=== PATIENT | male | born 1955 | race Caucasian/White ===

== ENCOUNTER 2018-05-16 08:30 | Inpatient (IN) | payer OTHER ==
[~2018-05-16] VITALS: Ht 182.9 cm; Wt 80.0 kg
[2018-05-16] MEDS ORDERED: LIPI10 PO (09:03)
[2018-05-16] MEDS ORDERED: SEROQUEL50 M1 PO (09:03)
[2018-05-16] MEDS ORDERED: OMEPRAZOLE40 M1 PO (09:03)
[2018-05-16] MEDS ORDERED: DOK COLACE100 MG PO (09:03)
[2018-05-16] MEDS ORDERED: BACITRACIN-NEO-1 OIN (09:03)
[2018-05-16] MEDS ORDERED: ROBAFEN100 MG/5 M (09:04)
[2018-05-16] MEDS ORDERED: BENZTROPINE MESY2 MG PO (09:04)
[2018-05-16] MEDS ORDERED: BENADRYL ALLERG25 M1 PO (09:04)
[2018-05-16] MEDS ORDERED: EFFEXOR-XR150 MG PO (09:04)
[2018-05-16] MEDS ORDERED: IBU600 M2 PO (09:05)
[2018-05-16 10:21] LABS: BASOPHIL % 0.6 % (0-2); PLATELET COUNT 377 x10^3mcL (130-400); RED CELL DISTRIBUTION WIDTH 14.4 % (11.5-14.5)
[2018-05-16 10:24] LABS: CALCIUM 9.3 mg/dL (8.5-10.1); CARBON DIOXIDE 29.3 mmol/L (21-32); CHLORIDE SERUM 101 mmol/L (98-107); CREATININE SERUM 0.9 mg/dL (0.7-1.3); GFR1 > 60 mL/min; GLUCOSE SERUM 86 mg/dL (74-106); POTASSIUM SERUM 4.2 mmol/L (3.5-5.1); SODIUM SERUM 137 mmol/L (136-145)
[2018-05-16 10:37] LABS: ALBUMIN 3.5 g/dL (3.4-5.0); ALKALINE PHOSPHATASE 89 U/L (46-116); ALT/SGPT 11 U/L (16-63); AST/SGOT 18 U/L (15-37); BILIRUBIN TOTAL 0.27 mg/dL (0.20-1.00); TOTAL PROTEIN, SERUM 7.9 g/dL (6.4-8.2)
[2018-05-16 10:40] LABS: microscopic required? NO
[2018-05-16 11:05] LABS: UA SPECIFIC GRAVITY <=1.005 (1.005-1.035); urine erythrocyte NEGATIVE (NEGATIVE)
[2018-05-16 12:11] LABS: CHOLESTEROL/HDL RATIO 3.9; PHOSPHOROUS 3.3 mg/dL (2.5-4.9)
[2018-05-16 18:05] VITALS: BP 105/59
[2018-05-16 21:19] VITALS: BP 96/52
[2018-05-16 21:48] VITALS: BP 101/64
[2018-05-17 05:18] VITALS: BP 118/79
[2018-05-17 06:56] LABS: BASOPHIL % 0.2 % (0-2); PLATELET COUNT 357 x10^3mcL (130-400); RED CELL DISTRIBUTION WIDTH 14.3 % (11.5-14.5)
[2018-05-17 07:05] LABS: CALCIUM 9.3 mg/dL (8.5-10.1); CARBON DIOXIDE 26.4 mmol/L (21-32); CHLORIDE SERUM 104 mmol/L (98-107); CREATININE SERUM 0.8 mg/dL (0.7-1.3); GFR1 > 60 mL/min; GLUCOSE SERUM 92 mg/dL (74-106); PHOSPHOROUS 3.2 mg/dL (2.5-4.9); POTASSIUM SERUM 4.4 mmol/L (3.5-5.1); SODIUM SERUM 139 mmol/L (136-145)
[2018-05-17 09:46] VITALS: BP 117/77
[2018-05-17 16:27] VITALS: BP 142/85
[2018-05-17 20:48] VITALS: BP 111/66
[2018-05-18 05:35] VITALS: BP 120/76
[2018-05-18 06:32] LABS: CALCIUM 9.6 mg/dL (8.5-10.1); CARBON DIOXIDE 26.8 mmol/L (21-32); CHLORIDE SERUM 104 mmol/L (98-107); GFR1 > 60 mL/min; GLUCOSE SERUM 110 mg/dL (74-106); MAGNESIUM 2.1 mg/dL (1.8-2.4); PHOSPHOROUS 4.1 mg/dL (2.5-4.9); POTASSIUM SERUM 4.3 mmol/L (3.5-5.1); SODIUM SERUM 139 mmol/L (136-145)
[2018-05-18 06:40] LABS: BASOPHIL % 0.1 % (0-2); PLATELET COUNT 399 x10^3mcL (130-400); RED CELL DISTRIBUTION WIDTH 13.3 % (11.5-14.5)
[2018-05-18 08:15] VITALS: BP 110/72
[2018-05-18] MEDS ORDERED: LEVAQUIN750 MG PO (11:47)
[2018-05-18] MEDS ORDERED: PREDNISONE20 MG PO (11:58)
[2018-05-18 12:02] VITALS: BP 110/72
[2018-05-18] MEDS ORDERED: BACO TOP (15:41)
[2018-05-18] MEDS ORDERED: APLICARE ANTIS118 M3 TOP (15:41)
[2018-05-19 09:04] VITALS: Ht 182.9 cm; Wt 80.0 kg
== END 2018-05-18 18:02 | DRG 193 ==
LOC: ED 08:30 → MU 11:31
PROVIDERS: Emergency Medicine; ADMIT Internal Medicine
DX: J15.9 Unspecified bacterial pneumonia (principal); J96.01 Acute respiratory failure with hypoxia; J44.1 Chronic obstructive pulmonary disease with (acute) exacerbation; E11.65 Type 2 diabetes mellitus with hyperglycemia; F70 Mild intellectual disabilities; E78.5 Hyperlipidemia, unspecified; K21.9 Gastro-esophageal reflux disease without esophagitis; Z72.0 Tobacco use; Z68.23 Body mass index [BMI] 23.0-23.9, adult
CPT/HCPCS: 36600; 82962; 83880; 87804; 99406; J1644; J1956; J2543; J2920; J2930; J7030; J7040; J7613; J7644; Q0092; Q0163

== ENCOUNTER 2018-05-27 10:51 | Inpatient (IN) | payer OTHER ==
[~2018-05-27] VITALS: Ht 182.9 cm; Wt 74.2 kg
[~2018-05-27 10:51] MED LIST: APLICARE ANTIS118 M3 TOP; BACITRACIN-NEO-1 OIN; BACO TOP; BENADRYL ALLERG25 M1 PO; BENZTROPINE MESY2 MG PO; DOK COLACE100 MG PO; EFFEXOR-XR150 MG PO; IBU600 M2 PO; LEVAQUIN750 MG PO; LIPI10 PO; OMEPRAZOLE40 M1 PO; PREDNISONE20 MG PO; ROBAFEN100 MG/5 M; SEROQUEL50 M1 PO
[2018-05-27 11:44] LABS: BASOPHIL % 0.3 % (0-2); PLATELET COUNT 242 x10^3mcL (130-400)
[2018-05-27 11:45] LABS: RED CELL DISTRIBUTION WIDTH 14.9 % (11.5-14.5)
[2018-05-27 11:52] LABS: CHLORIDE SERUM 96 mmol/L (98-107); CREATININE SERUM 1.1 mg/dL (0.7-1.3); GFR1 > 60 mL/min; GLUCOSE SERUM 97 mg/dL (74-106); POTASSIUM SERUM 3.7 mmol/L (3.5-5.1); SODIUM SERUM 131 mmol/L (136-145)
[2018-05-27 12:03] LABS: ALBUMIN 3.4 g/dL (3.4-5.0); ALKALINE PHOSPHATASE 75 U/L (46-116); ALT/SGPT 21 U/L (16-63); AMYLASE 30 U/L (25-115); AST/SGOT 19 U/L (15-37); BILIRUBIN TOTAL 0.34 mg/dL (0.20-1.00); HDL CHOLESTEROL 60 mg/dL (40-60); LIPASE 39 IU/L (73-393); MAGNESIUM 1.9 mg/dL (1.8-2.4); TOTAL PROTEIN, SERUM 7.5 g/dL (6.4-8.2)
[2018-05-27 12:04] LABS: CHOLESTEROL 126 mg/dL (<200)
[2018-05-27 12:27] LABS: microscopic required? NO
[2018-05-27 12:40] LABS: UA SPECIFIC GRAVITY 1.015 (1.005-1.035); urine erythrocyte NEGATIVE (NEGATIVE)
[2018-05-27 12:53] LABS: AMPHETAMINE QUAL UR NONE DETECTED (See below)
[2018-05-27 14:54] VITALS: BP 112/75
[2018-05-27 15:32] VITALS: BP 126/71
[2018-05-27 21:30] VITALS: BP 110/56
[2018-05-28 06:11] VITALS: BP 96/58
[2018-05-28 09:00] VITALS: BP 92/58
[2018-05-28 12:31] VITALS: BP 88/54
[2018-05-28 17:02] VITALS: BP 109/68
[2018-05-28 20:24] VITALS: BP 91/49
[2018-05-29 06:23] VITALS: BP 96/58
[2018-05-29 07:03] LABS: BASOPHIL % 0.1 % (0-2); PLATELET COUNT 249 x10^3mcL (130-400)
[2018-05-29 07:27] LABS: CALCIUM 9.7 mg/dL (8.5-10.1); CARBON DIOXIDE 25.3 mmol/L (21-32); CHLORIDE SERUM 102 mmol/L (98-107); CREATININE SERUM 0.8 mg/dL (0.7-1.3); GFR1 > 60 mL/min; GLUCOSE SERUM 124 mg/dL (74-106); MAGNESIUM 2.2 mg/dL (1.8-2.4); POTASSIUM SERUM 4.5 mmol/L (3.5-5.1); SODIUM SERUM 135 mmol/L (136-145)
[2018-05-29 07:45] VITALS: BP 103/67
[2018-05-29 12:30] VITALS: BP 105/67
[2018-05-29 17:44] VITALS: BP 99/67
[2018-05-29 20:25] VITALS: BP 97/62
[2018-05-30 04:34] VITALS: BP 107/56
[2018-05-30 07:42] LABS: CALCIUM 9.6 mg/dL (8.5-10.1); CARBON DIOXIDE 27.5 mmol/L (21-32); CHLORIDE SERUM 100 mmol/L (98-107); CREATININE SERUM 0.8 mg/dL (0.7-1.3); GFR1 > 60 mL/min; GLUCOSE SERUM 90 mg/dL (74-106); POTASSIUM SERUM 4.4 mmol/L (3.5-5.1); SODIUM SERUM 135 mmol/L (136-145)
[2018-05-30 08:13] LABS: BASOPHIL % 0 % (0-2); PLATELET COUNT 240 x10^3mcL (130-400); RED CELL DISTRIBUTION WIDTH 14.9 % (11.5-14.5)
[2018-05-30 08:45] VITALS: BP 93/55
[2018-05-30 11:50] VITALS: BP 107/65
[2018-05-30 20:43] VITALS: BP 103/63
[2018-05-31 04:51] VITALS: BP 99/57
[2018-05-31 07:34] VITALS: BP 106/74
[2018-05-31 12:22] VITALS: BP 105/63
[2018-05-31 16:38] VITALS: BP 110/60
[2018-05-31 20:36] VITALS: BP 100/62
[2018-06-01 05:32] VITALS: BP 90/57
[2018-06-01 07:29] LABS: CARBON DIOXIDE 28.5 mmol/L (21-32); CHLORIDE SERUM 96 mmol/L (98-107); CREATININE SERUM 0.8 mg/dL (0.7-1.3); GFR1 > 60 mL/min; GLUCOSE SERUM 87 mg/dL (74-106); POTASSIUM SERUM 4.4 mmol/L (3.5-5.1); SODIUM SERUM 131 mmol/L (136-145)
[2018-06-01 07:33] LABS: BASOPHIL % 0.2 % (0-2); PLATELET COUNT 189 x10^3mcL (130-400); RED CELL DISTRIBUTION WIDTH 15.1 % (11.5-14.5)
[2018-06-01] MEDS ORDERED: ZIT250 PO (09:32)
[2018-06-01] MEDS ORDERED: PREDNISONE20 MG PO (09:32)
[2018-06-01 09:45] VITALS: BP 87/57
[2018-06-01] MEDS ORDERED: EPZICOM1 TAB PO (10:06)
[2018-06-01] MEDS ORDERED: KROGER NIC21 MG/24 H TOP (10:06)
[2018-06-01 12:13] VITALS: BP 96/54
[2018-06-01 16:52] VITALS: BP 106/61
[2018-06-01 16:55] VITALS: BP 94/60
[2018-06-01 20:08] VITALS: BP 92/53
[2018-06-02] VITALS (8 sets, daily range): BP systolic 85–90; BP diastolic 50–57
[2018-06-03 05:31] VITALS: BP 98/57
[2018-06-03 09:08] VITALS: BP 92/56
[2018-06-03 09:10] VITALS: BP 124/75
[2018-06-03 12:50] VITALS: BP 96/55
[2018-06-03 17:30] VITALS: BP 92/56
[2018-06-03 17:33] VITALS: BP 92/56
== END 2018-06-03 20:20 | DRG 196 ==
LOC: ED 10:51 → DU 14:22
PROVIDERS: Emergency Medicine; ADMIT Internal Medicine
DX: J84.10 Pulmonary fibrosis, unspecified (principal); J69.0 Pneumonitis due to inhalation of food and vomit; J96.21 Acute and chronic respiratory failure with hypoxia; J44.1 Chronic obstructive pulmonary disease with (acute) exacerbation; I45.2 Bifascicular block; E22.2 Syndrome of inappropriate secretion of antidiuretic hormone; F20.9 Schizophrenia, unspecified; I10 Essential (primary) hypertension; F70 Mild intellectual disabilities; E78.00 Pure hypercholesterolemia, unspecified; Z87.891 Personal history of nicotine dependence
CPT/HCPCS: 36600; 82962; 83880; 92526-GN; 92610; 99406; G0480; J0456; J1956; J2920; J2930; J3490; J7050; J7512; J7613; J7620; J7626; J7644; Q0092; Q9967

== ENCOUNTER 2018-08-02 21:53 | Inpatient (IN) | payer OTHER ==
[~2018-08-02] VITALS: Ht 177.8 cm; Wt 77.0 kg
[~2018-08-02 21:53] MED LIST changes: +EPZICOM1 TAB PO; +KROGER NIC21 MG/24 H TOP; +ZIT250 PO
[2018-08-02 21:55] VITALS: Ht 177.8 cm; Wt 77.0 kg
--- NOTE | 2018-08-02 22:00 | NUR ---
PT BIB CAREGIVER. PER CAREGIVER REPORTED PT HAS BEEN SP02 SATING BETWEEN 89-90% PT STATED THAT HE DIDN'T LOOK WELL. A&OX1 ALERT TO SELF. UNABLE TO RECALL PAST MEDICAL HISTORY OR REASONING FOR ENTERING. CAREGIVER REPORTED HISTORY OF COPD. O2 SATS 89% PLACED ON 2L NC. LUNG SOUNDS DIM [place]. CIRCULATION POOR W/ CAP REFILL > 3 SECOND. NOTED CLUBBING OF FINGERS AND TOES. CARDIAC W/ ECG DONE SEE REPORT. SKIN INTACT.
--- NOTE | 2018-08-02 22:14 | NUR ---
LAB AT BEDSIDE FOR BLOOD DRAW
--- NOTE | 2018-08-02 22:14 | NUR ---
DR CUETO AT BEDSIDE FOR MSE
--- NOTE | 2018-08-02 22:17 | NUR ---
PER BUYER AGENT PT NORMAL O2 SAT IS AROUND 88-89%
[2018-08-02 22:30] LABS: BASOPHIL % 0.4 % (0-2); RED CELL DISTRIBUTION WIDTH 14.5 % (11.5-14.5)
[2018-08-02 22:32] LABS: PLATELET COUNT 443 x10^3mcL (130-400)
--- NOTE | 2018-08-02 22:35 | NUR ---
NOTED OF REPORT FROM DONAVAN TO NEED TO LEAVE AND IF PT NEEDS TO BE PICKED UP CONTACT @ [phone]
[2018-08-02 22:43] LABS: CALCIUM 9.6 mg/dL (8.5-10.1); CARBON DIOXIDE 26.2 mmol/L (21-32); CHLORIDE SERUM 104 mmol/L (98-107); CREATININE SERUM 0.9 mg/dL (0.7-1.3); GFR1 > 60 mL/min; GLUCOSE SERUM 109 mg/dL (74-106); SODIUM SERUM 139 mmol/L (136-145)
[2018-08-02 22:48] LABS: ALBUMIN 3.3 g/dL (3.4-5.0); ALKALINE PHOSPHATASE 90 U/L (46-116); ALT/SGPT 29 U/L (16-63); AST/SGOT 21 U/L (15-37); BILIRUBIN TOTAL 0.27 mg/dL (0.20-1.00); TOTAL PROTEIN, SERUM 7.8 g/dL (6.4-8.2)
--- NOTE | 2018-08-02 22:55 | NUR ---
PT SLEEPING ON GURNEY IN POSITION OF COMFORT. EASILY ARROUSEABLE. NO S/S OF DISTRESS. RESP E/U. WILL CONTINUE TO MONITOR.
--- NOTE | 2018-08-02 23:58 | NUR ---
PT RESTING ON BED CALMLY. NO S/S OF DISTRESS. BED IN LOWEST POSITION CALL PETTY WITHIN REACH. WILL CONT TO MONITOR.
[2018-08-03] VITALS (7 sets, daily range): BP systolic 96–120; BP diastolic 63–77
[2018-08-03 01:02] LABS: PHOSPHOROUS 4.1 mg/dL (2.5-4.9)
[2018-08-03 01:19] LABS: CHOLESTEROL/HDL RATIO 3.9
--- NOTE | 2018-08-03 01:19 | NUR ---
REPORT GIVEN TO KAMILAH DE LEON. ALL CONCERNS ADDRESSED TO ASSUME CARE OF PT.
[2018-08-03 01:41] LABS: FREE T4 0.83 ng/dL (0.76-1.46); FREE THYROXINE INDEX 2.3 ug/dL (1.4-4.5)
--- NOTE | 2018-08-03 01:48 | NUR ---
PT RECEIVED FROM ER VIA [facility]. PT AWAKE AND ALERT. PT DENIES ANY CHEST PAIN OR SOB. 02 AT 2LNC, WITH 02 SAT 98%. NO RESP DISTRESS NOTED. TELE BOX #17 APPLIED ON PATIENT AND LOGISTICS CLERK SHOWS SR WITH HR 86/MIN. PT DENIES ANY PAIN AT THIS TIME. SKIN WARM AND DRY. IV SITE ON RT FA, NO S/S INFILTRATION. IV ZITHROMAX CONT INFUSING AND STARTED IN ER. PT ORIENTED TO ROOM AND SURROUNDINGS. BED LOW AND LOCKED POSITION. CALL LIGHT WITHIN REACHED.
--- NOTE | 2018-08-03 02:45 | NUR ---
RECEIVED PT FROM ED VIA [facility]ERNEY ACCOMPANIED BY ER STAFFS, PT DROWSY/ORIENTED X1 TO SELF ONLY. PLACED COMFORTABLY IN BED. ROUTINE ADMISSION CARE RENDERED. VS TAKEN AND RECORDED. IV ACCESS TO RFA G#0 INTACT AND PATENT, ATB IV AZITHROMYCIN INFUSING FROM ER TOELRATING WELL. DR MARKS AT BEDSIDE ASSESSING PT. SOLUMEDROL 125MG IVP GIVEN ORDERED. RESPIRATION EVEN AND UNLABORED, DIMINISHED BREATH SOUNDS LEFT UPPER LOBE, ON 02 AT 2L/NC SATURATING AT 98% PLACED ON TELE#17 WITH NORMAL SINUS WITH ELEVATED T-WAVE. DENEIS ANY CHEST PAIN/DISCOMFORT AT THIS TIME. SKIN CLEAR AND INTACT. WILL COTNINUE TO MONITOR.
[2018-08-03 04:17] LABS: T3 TOTAL 0.94 ng/mL
--- NOTE | 2018-08-03 05:40 | NUR ---
ATTEMPTED INCENTIVE SPIROMETRY WITH PATIENT UPON ARRIVAL TO THE FLOOR, PT ASLEEP AND TOO LETHARGIC. WILL ATTEMPT AGAIN IN THE MORNING.
--- NOTE | 2018-08-03 06:29 | NUR ---
NO ADVERSE REACTION NOTED FROM ATB THERAPY. NO URINE SPECIMEN COLLECTED FOR US/UDS, ONSTRUCTED PT TO SAVE SOME SPECIMEN, URINAL AT BEDSIDE, PT VERY SLOW TO RESPOND. CONTINUES ON IVF NS AT 100CC/HR ORDERED. KEPT CLEAN AND DRY . ALL NEEDS ATTENDED.
[2018-08-03 06:40] LABS: BASOPHIL % 0.3 % (0-2)
[2018-08-03 06:43] LABS: CALCIUM 9.1 mg/dL (8.5-10.1); CARBON DIOXIDE 25.2 mmol/L (21-32); CHLORIDE SERUM 105 mmol/L (98-107); CREATININE SERUM 0.8 mg/dL (0.7-1.3); GFR1 > 60 mL/min; GLUCOSE SERUM 102 mg/dL (74-106); MAGNESIUM 1.9 mg/dL (1.8-2.4); PHOSPHOROUS 3.2 mg/dL (2.5-4.9); POTASSIUM SERUM 3.9 mmol/L (3.5-5.1); SODIUM SERUM 139 mmol/L (136-145)
[2018-08-03 07:00] LABS: PLATELET COUNT 424 x10^3mcL (130-400); RED CELL DISTRIBUTION WIDTH 15.1 % (11.5-14.5)
--- NOTE | 2018-08-03 07:10 | NUR ---
PT ASLEEP BUT AROUSABLE. RESP EVEN AND UNLABORED ON 2L NC. IV INTACT AND PATENT. BED IN LOW POSITION. CALL LIGHT WITHIN REACH. WILL CONTINUE TO MONITOR.
--- NOTE | 2018-08-03 10:10 | NUR ---
PT LYING IN BED AND NO ACUTE DISTRESS NOTED. DENIES SOB. CALL LIGHT WITHIN REACH. WILL CONTINUE TO MONITOR.
--- NOTE | 2018-08-03 12:30 | NUR ---
PT EATING LUNCH ON EDGE OF BED . NO ACUTE DISTRESS NOTED. CALL LIGHT WITHIN REACH. WILL CONTINUE TO MONITOR.
[2018-08-03 13:33] LABS: microscopic required? NO
[2018-08-03 13:48] LABS: UA SPECIFIC GRAVITY >=1.030 (1.005-1.035); urine erythrocyte NEGATIVE (NEGATIVE)
[2018-08-03 13:58] LABS: AMPHETAMINE QUAL UR NONE DETECTED (See below)
--- NOTE | 2018-08-03 15:12 | NUR ---
PT LYING IN BED WATCHING TV. NO C/O OF SOB. CALL LIGHT WITHIN REACH. WILL CONTINUE TO MONITOR.
--- NOTE | 2018-08-03 18:16 | NUR ---
PT RESTING IN BED. RESP EVEN AND UNLABORED ON 2L NC. 02 SAT 95% DENIES SOB. IV INTACT AND PATENT. BED IN LOW POSITION. CALL LIGHT WITHIN REACH. WILL BE ENDORSED.
--- NOTE | 2018-08-03 19:10 | NUR ---
AWAKE AND VERBALLY RESPONSIVE, ABLE TO MAKE NEEDS KNOWN. DENEIS ANY PAIN/DISCOMFORT AT THIS TIME. RESPIRATION EVEN AND UNLABORED WITH DIMINISHED BREATH SOUN ON CARLOS EDUARDO, NO COUGHING/CONGESTION NOTED. IV SITE AT THE RFA INTACT AND PATENT WITH IVF NS AT 100CC/HR INFUSING WELL. CALL LIGHT WITHIN REACH, INSTRUCTED TO CALL FOR ANY ASSISTANCE NEEDED AND VERBALIZEE UNDERSTANDING,
--- NOTE | 2018-08-03 22:30 | NUR ---
ALL DUE MEDICATIONS GIVEN AND WELL TOLERATED. AMBULATED TO BATHROOM FOR PERSONAL NEEDS. HAD BM X1 BROWNISH WELL FORMED STOOL. KEPT CLEAN AND DRY.
--- NOTE | 2018-08-04 01:10 | NUR ---
EYES CLOSED,, NO FACIAL GRIMACING NOTED. RESPIRATION EVEN AND UNLABORED. NO S/S OF PAIN/DISCOMFORT. CONTINUES ON IVF NS AT 100CC/HT VIA PERIPHERAL LINE AT THE RFA. CALL LIGHT WITHIN REACH. BED IN LOWEST POSITION.
[2018-08-04 05:31] VITALS: BP 134/83
--- NOTE | 2018-08-04 05:51 | NUR ---
PT KEEPS ON REMOVING TELE STRIPS, EXPLAINED THE IMPORTANCE BUT NO AVAIL. USES URINAL FOR BLADDER ELIMNATION. KEPT CLEAN AND DRY. ALL DUE MEDICATIONS GIVEN TOLERATING WELL.
--- NOTE | 2018-08-04 07:45 | NUR ---
RECEIVED PT IN BED A/A/OX2 PERSON AND PLACE. HX OF PSYCH, SCHYZO. ABLE TO FOLLOW COMMANDS AND MAKE NEEDS KNOWN. RESP EVEN EN AND UNLABORED WITH DIMINISHED BS TO CARLOS EDUARDO. ON O2 AT 2L/MIN VIA NC WITH RT PROTOCOL. DENIES ANY CP/PRESSURE AT THIS TIME. NO EDEMA NOTED. IVF TO LFA. ABD SOFT, NONTENDER WITH ACTIVE BS X4. AMBULATORY WITH SUPERVISION. CALL LIGHT IN REACH NEEDS ATTENDED.
[2018-08-04 08:30] VITALS: BP 122/77
--- NOTE | 2018-08-04 10:00 | NUR ---
PT'S SISTER HO, REQUESTING TO SPEAK WITH DR. PATHAK AND CM. DR. PATHAK WAS MADE AWARE VIA [employer] TO CALL FAMILY AND SISTER WAS TRANSFER TO CM. CONT TO MONITOR.
[2018-08-04 12:00] VITALS: BP 120/64
--- NOTE | 2018-08-04 15:20 | NUR ---
PT RESTING AT THIS TIME. HAD TAKEN TELE OFF AND RECONNECTED AT THIS TIME. DENIES ANY PAIN OR DISCOMFORT AT THIS TIME. CALL LIGHT IN REACH NEEDS ATTENDED TO.
--- NOTE | 2018-08-04 18:15 | NUR ---
PT RESTING COMFORTABLY AT THIS TIME. DENIES ANY DISOMFORT. CALL LIGHT IN REACH NEEDS ATTENDED TO.
[2018-08-04 18:30] VITALS: BP 121/83
--- NOTE | 2018-08-04 20:00 | NUR ---
RECEIVED PT IN BED. RESTING. A/O X2, ORIENTED TO NAME AND PLACE. HX OF PSYCH. RESP. EVEN AND UNLABORED. ON ROOM AIR AT THIS TIME, SAT. 93%. NO ACUTE DISTRESS NOTED. DENIES CP OR ANY DISCOMFORT. IVF , NS AT 100ML/HR, INTACT AND INFUSING VIA LFA, SITE CLEAR.NO COMPLAINTS NOTED AT THIS TIME. ABLE TO TURN AND REPOSITION SELF IN BED. AMBULATE WITH SUPERVISION. ASSISTED WITH HS CARE. CALL LIGHT WITHIN REACH. WILL CONTINUE TO MONITOR.
[2018-08-04 20:32] VITALS: BP 124/63
--- NOTE | 2018-08-05 01:58 | NUR ---
APPEARS COMFORTABLE WITH EYES CLOSED, EASILY AROUSABLE. RESP. EVEN AND UNLABORED. NO ACUTE DISTRESS NOTED. WILL CONTINUE TO MONITOR.
[2018-08-05 05:17] VITALS: BP 111/60
--- NOTE | 2018-08-05 06:08 | NUR ---
VERY RESTLESS, WITH SPONT. MOVEMENTS. ABLE TO FOLLOW COMMANDS. RESP. EVEN AND UNLABORED. ON ROOM AIR AT THIS TIME,NO ACUTE DISTRESS NOTED.AFEBRILE AND VITAL SIGNS STABLE. VOIDING FREELY VIA URINAL.NO BM NOTED. IVF INTACT AND INFUSING WELL, SITE CLEAR.DUE MEDS GIVEN ORDERED,TAMIKO. WELL.KEPT COMFORTABLE AND ALL NEEDS ATTENDED TO. WILL CONTINUE TO MONITOR.
--- NOTE | 2018-08-05 07:45 | NUR ---
RECEIVED PT IN BED A/A/OX2 PERSON AND PLACE. ABLE TO FOLLWO COMMANDS AND MAKE NEEDS KNOWN. WITH SLIHTLY GRABLED SLOW SPEECH. PT HAS CONSTANT INVOLUNTARY MUSCLE MOVEMENTS AT BASELINE. RESP EVEN AND UNLABORED WITH DIMINISHED BS TO CARLOS EDUARDO. ON RT PROTOCOL. USES O2 BUT TAKES IT OF FREQUENTLY. DENIES ANY CP/PRESSURE. ST WITH BBB WITH HR 115. DENIES ANY CP/PRESSURE AT THIS TIME. ABD SOFT, NONTENDER WITH ACTIVE BS X4. DENIES ANY N/V AT THIS TIME. VOIDING FREELY. AMBULATORY WITH SUPERVISION. CALL LIGHT IN REACH NEEDS ATTENDED TO.
[2018-08-05 07:50] LABS: CALCIUM 9.3 mg/dL (8.5-10.1); CARBON DIOXIDE 26.7 mmol/L (21-32); CHLORIDE SERUM 104 mmol/L (98-107); CREATININE SERUM 0.8 mg/dL (0.7-1.3); GFR1 > 60 mL/min; GLUCOSE SERUM 97 mg/dL (74-106); SODIUM SERUM 139 mmol/L (136-145)
[2018-08-05 08:05] VITALS: BP 127/75
[2018-08-05 08:07] LABS: BASOPHIL % 0.1 % (0-2)
[2018-08-05 08:13] LABS: PLATELET COUNT 430 x10^3mcL (130-400); RED CELL DISTRIBUTION WIDTH 14.7 % (11.5-14.5)
--- NOTE | 2018-08-05 10:30 | NUR ---
SPOKE WITH PT'S SISTER HO. UPDATED ON CONDITION. VERBALIZED CONCERN REGARDING PT'S D/C PLAN BACK TO B+C CONCERN PT MAY NEED MORE CARE SINCE HE KEEP GETTING PNA. SISTER REQUESTED FOR DR. PATHAK TO CALL HER TO DISCUSS CARE. DR. PATHAK MADE AWARE.
--- NOTE | 2018-08-05 11:20 | NUR ---
SPOKE WITH CT EARLIER TODAY PT WITH ORDER FOR CT ANGIO- REQUESTED 20G IV ACCESS AT AC LEVEL AND SEDATIVE FOR PT SINCE HE FIDGETS ALOT. SPOKE WITH DR. PATHAK STATED SHE WILL DISCUSSE IN BED HUDDLE REGARDING GIVING PT A SEDATIVE. NOTED ORDER FOR 4MG OF ATIVAN TO BE GIVEN PRIOR TO EXAM. STARTED NEW IV 20G TO LAC. CALLED FISHING ACCESSORIES MAKER AND MADE AWARE THAT PT WILL REQUIRE MONITORING D/T LARGE DOSE OF ATIVAN. FISHING ACCESSORIES MAKER WILL NOTIFY RADIOLOGY NURSE AND SET UP EXAM. WILL AWAIT CALL BACK FOR FINAL ARRANGEMENTS.
[2018-08-05 11:45] VITALS: BP 133/79
--- NOTE | 2018-08-05 14:35 | NUR ---
RADIOLOGY NURSE AT BEDSIDE TO PICK PT UP FOR CT ANGIO. PT PLACED ON PORTABLE MONITOR WITH CONT PULSE OX IN PLACE. SATING 92% ON RA, PLACED ON O2 AT 4L/MIN VIA NC IN PREPARATION FOR SEDATION WITH ATIVAN 4MG IVP. MEDS GIVEN ORDERED. PT WAS TAKEN DOWN TO RADIOLOGY BY RADIOLOGY NURSE AND TECH. PT LEFT FLOOR FREE OF ANY APPARENT DISTRESS.
--- NOTE | 2018-08-05 15:10 | NUR ---
PT BACK FROM RADIOLOGY SLEEPY PLACED ON COTN PLUSE OX AT THIS TIME. VSS O2 SAT 100% ON 4L/MIN VIA NC. CONT TO MONITOR PT. BED ALARM IN PLACE.
--- NOTE | 2018-08-05 16:10 | NUR ---
RECEIVED CALL REGARDING CRITICAL CT ANGIO RESULTS. DR. REA (COVERING DR. PATHAK) PAGED AND RETURNED CALL. NOTIFIED THAT RESULTS WERE BACK. MD TO REVIEW REPORT. NO FURTHER ORDERS AT THIS TIME. PT REMAINS DOWSY FORM ATIVAN. RESP EVEN AND UNLABORED ON O2 AT 2L/MIN VIA NC. O2SAT 96
[2018-08-05 18:30] VITALS: BP 117/79
--- NOTE | 2018-08-05 18:35 | NUR ---
PT RESTING COMFORTABLY AT THIS TIME. MOVING IN BED. MORE EASILY ARROUSABLE. IVF INFUSING WELL. CALL LIGHT IN REACH NEEDS NEEDS ATTENDED TO.
--- NOTE | 2018-08-05 18:35 | NUR ---
PT RESTING COMFORTABLY AT THIS TIME. DENIES ANY DISCOMFORT. FAMILY AT BEDSIDE. ASSIST WITH REPOSITIONING. CALL LIGHT IN REACH NEEDS ATTENDED TO.
--- NOTE | 2018-08-05 20:00 | NUR ---
RECEIVED PT IN BED, DOOZING OFF AND ON AT THIS TIME. AROUSABLE. RESP. EVEN AND UNLABORED. 02 AT 2L/MIN VIA NC, SAT. 97%. NO ACUTE DISTRESS NOTED. AFEBRILE AND VITAL SIGNS STABLE. IVF, NS AT 100ML/HR, INTACT AND INFUSING VIA LFA, SITE CLEAR.SR ON THE MONITOR, DENIES CP. CALL LIGHT WITHIN REACH. WILL CONTINUE TO MONITOR.
[2018-08-05 22:19] VITALS: BP 129/87
--- NOTE | 2018-08-06 01:24 | NUR ---
EYES CLOSED , APPEARS ASLEEP. EASILY AWAKENED. RESP. EVEN AND UNLABORED. NO ACUTE DISTRESS NOTED.WILL CONTINUE TO MONITOR.
--- NOTE | 2018-08-06 05:57 | NUR ---
ANXIOUS AT TIMES , WITH SPONT. MOVEMENTS. RESP. EVEN AND UNLABORED. ON ROOM AIR , NO ACUTE DISTRESS NOTED. AFEBRILE AND VITAL SIGNS STABLE. DUE MEDS GIVEN ORDERED, TAMIKO. WELL. INCONT. OF URINE, CLEANED, LINEN AND GOWN CHANGED. KEPT COMFORTABLE. ALL NEEDS ATTENDED TO.
[2018-08-06 06:15] VITALS: BP 121/71
--- NOTE | 2018-08-06 07:37 | NUR ---
RECEIVED PT FROM LEAVING NURSE. PT IS RECEIVING BREATHIN TREATMENT. PT CONFUSED PER REPORT. PT COVERED HIS HEAD WITH BLANKET. SALINE LOCK AT THIS TIME.
[2018-08-06 09:38] VITALS: BP 118/69
--- NOTE | 2018-08-06 10:35 | NUR ---
PT IS A/O X1. PT NOT ABLE TO ANSWER QUESTIONS APPROPRIATELY. PT MOVING A LOT, AND TRYING TO PULL IV. SALINE LOCK AFTER ANTIBIOTICS.
--- NOTE | 2018-08-06 11:00 | NUR ---
PT'S REPORT GIVENT TO RECEIVING NURSE CHRISTINA.
[2018-08-06 13:36] VITALS: BP 116/79
[2018-08-06 16:12] VITALS: BP 116/79
[2018-08-06 17:47] VITALS: BP 95/59
--- NOTE | 2018-08-06 18:23 | NUR ---
PT RESTING AT THIS TIME IN NO ACUTE DISTRESS. PT TOLERATED TREATMENT WELL DURING SHIFT, NO NEW EVENTS TO REPORT TO FOUNDRY WORKER APPRENTICE NURSE. ROUNDING COMPLETED, WILL ENDORSE CARE TO FOUNDRY WORKER APPRENTICE NURSE.
--- NOTE | 2018-08-06 19:54 | NUR ---
SHIFT REASSESSMENT DONE.PATIENT A/O X 2.BREATHING EASY,RT PROTOCOL.GEN WEAKNESS.LAC HEPLOCK INTACT LFA HEPLOCK IVF NS AT 100 CC/ HOUR.NOT CONNECTED ON INITIAL NURSING ROUNDS.RN SAY HE WILL PULL IVF.WILL TRY TO CONNECT IT THIS SHIFT.TELE 17SR.VOIDING PER URINAL.CALL LIGHT IN REACH.
[2018-08-06 20:54] VITALS: BP 105/66
--- NOTE | 2018-08-07 01:56 | NUR ---
PATIENT USING URINAL AT BEDSIDE.
--- NOTE | 2018-08-07 04:00 | NUR ---
IVF INFUSING,UP IN RESTROOM,VOIDING WELL.CALL LIGHT IN REACH.
[2018-08-07 05:37] VITALS: BP 112/69
--- NOTE | 2018-08-07 05:53 | NUR ---
I AND O MEASURED AND RECORDED.WILL CONTINUE PLAN OF CARE.
[2018-08-07 06:11] LABS: BASOPHIL % 0.6 % (0-2)
[2018-08-07 06:28] LABS: CALCIUM 9.4 mg/dL (8.5-10.1); CARBON DIOXIDE 28.4 mmol/L (21-32); CHLORIDE SERUM 102 mmol/L (98-107); CREATININE SERUM 0.8 mg/dL (0.7-1.3); GFR1 > 60 mL/min; GLUCOSE SERUM 98 mg/dL (74-106); PLATELET COUNT 421 x10^3mcL (130-400); POTASSIUM SERUM 4.1 mmol/L (3.5-5.1); RED CELL DISTRIBUTION WIDTH 14.9 % (11.5-14.5); SODIUM SERUM 136 mmol/L (136-145)
--- NOTE | 2018-08-07 06:58 | NUR ---
RECEIVED PT FROM SHIFT NURSE LYING IN BED A/OX2. NO ACUTE DISTRESS NOTED. RESP EVEN AND UNLABORED ON RA. DENIES SOB. IV INTACT AND PATENT. BED IN LOW POSITION. CALL LIGHT WITHIN REACH. WILL CONTINUE TO MONITOR.
[2018-08-07 09:49] VITALS: BP 107/67
--- NOTE | 2018-08-07 10:12 | NUR ---
PT ASLEEP BUT AROUSABLE. NO ACUTE DISTRESS. CALL LIGHT WITHIN REACH. WILL CONTINUE TO MONITOR.
--- NOTE | 2018-08-07 12:35 | NUR ---
PT REFUSED HHN TX.
--- NOTE | 2018-08-07 13:10 | NUR ---
PT RESTING IN BED. CALL LIGHT WITHIN REACH. WILL CONTINUE TO MONITOR.
[2018-08-07 13:23] VITALS: BP 118/79
--- NOTE | 2018-08-07 14:20 | NUR ---
Initial Nutrition Assessment: # 237-B Jose Pedraza-MR Dx: Left Upper Lobe Pneumonia, Cardiac Arrythmia PMHx: GERD, COPD, HTN, HLD, Unspecified psychiatric hx PSHx: None Labs: Na 136, K 4.1, BUN 26.0H, Hgb 12.9L, Hct 38L Meds: Colace, Levaquin Premix, Lipitor, Prilosec, Sodium Chl 0.9%, Zofran Diet: Cardiac-Low chol/Low fat/2g Na PO Intake: 08/03-100%, 08/04-100%, 08/05-100%, 08/06-100% Ht: 177.8cm, 70in Wt: 77kg, 169# BMI: 24.4kg/m2 Normal Bed scale: 144# IBW: 160# %IBW: 105% UBW: 170# Age: 63/M Food Allergies: Peanut, no others that pt mentioned Skin: Intact Himanshu: 22 Edema: None GI: Last BM: Pt Visit: Pt was awake, but had a difficult time speaking. Pt's speech was a little slurred and he took a few moments to respond. Pt at times was difficult to understand. Pt also was moving legs back and forth a lot so bedscale may not be as accurate due to all the movement. Pt willingly took the [facility] Cardiac Diet education packet. Pt stated that the facility he lives at cooks for him. Pt stated that he doesn't follow any type of special diet where he lives. Per H&P: This is a 63yoM with PMH GERD, COPD, HTN, HLD, and unspecified psychiatric hx who [facility] caregiver c/o worsening SOB and associated cough productive of green sputum for the past few days. No reported fevers or chills, but the caregiver reported normal low saturations of O2 at home, lower than his baseline of 88-90%. Of note, pt with recent admissions both in Apr and May of this year for the same complaints, and each admission was treated for COPD exacerbation with underlying pneumonia. The remainder of the hx and ROS was unable to be obtained due to somnolence and the patient's baseline level of orientation. Pt lives at [facility], no report of home O2 at baseline, and is able to ambulate freely without assistance. Problem with: N: No V: No D: No C: No Problems with: Chewing: None Swallowing: None Current appetite: Fair Recent wt change: per pt he feels he has gained weight. %wt change: N/A Vitamin/Supplement use: None Special diet at home: None Physical activity: Walks daily for 20 minutes Education: Pt was given the [facility] Cardiac Diet packet. Showed pt the list of foods to eat and asked if he ate any fruits and vegetables. Pt stated he sometimes would eat fruits and vegetables, but eats whatever is prepared for him. Pt did not have any questions on the packet. Pt was having a diffiuclt time speaking. Estimated Nutritional Needs Based on ideal body weight 73kg Energy: 2100-2555kcal/d (30-35kcal/kg) (due to PNA) Protein: 95-146 g/d (1.3-2.0g/kg) (due to PNA) Fluid: per doctor Nutrition Diagnosis 1. Increased nutrient needs r/t medical diagnosis aeb pneumonia Intervention 1. Continue Cardiac diet-low chol/low fat/2g Na 2. Cardiac diet education was provided to the patient. Will be followed up again. Monitor/Evaluate Goal: PO intake at least 75% of estimated needs Monitor: PO intake, Labs, GI function, tolerance and education on cardiac diet F/U 08/10-08/12
--- NOTE | 2018-08-07 14:21 | NUR ---
Intervention 1. Continue Cardiac diet-low chol/low fat/2g Na 2. Cardiac diet education was provided to the patient. Will be followed up again.
[2018-08-07 17:50] VITALS: BP 120/79
--- NOTE | 2018-08-07 18:14 | NUR ---
PT ASLEEP BUT AROUSABLE. APPEARS IN NO ACUTE DISTRESS. IV INTACT AND PATENT. BED IN LOW POSITION. CALL LIGHT WITHIN REACH. WILL BE ENDORSED.
--- NOTE | 2018-08-07 19:31 | NUR ---
PT IS ALERT x2. ABLE TO FOLLOW SIMPLE COMMANDS, HAS RANDOM THOUGHT PROCESS AT TIMES. SEEMS FIDGETY. MED SURG. DENIES ANY CHEST PAIN OR PRESSURE. PULSES ARE PRESENT. NO EDEMA NOTED. LUNGS CLEAR IN ALL FEILDS. ON RA, NO SIGN OF RESP DISTRESS. EQUAL CHEST RISE AND FALL. BOWEL SOUNDS PRESENT. SKIN WARM AND INTACT. DENIES ANY PAIN AT THIS TIME. IV ON LFA INTACT AND PATENT. NO SIGN OF IRRITATION OR INFILTRATION NOTED. BED IS AT LOWEST SETTING. CALL LIGHT WITHIN REACH. WILL CONTINUE TO MONITOR.
[2018-08-07 21:18] VITALS: BP 99/58
--- NOTE | 2018-08-08 02:27 | NUR ---
PT IS RESTING IN BED. DENIES ANY DISTRESS. SALINE LOCKED AT THIS TIME. PT KEEPS GETTING TANGLED WHEN SLEEPING. BED IS AT LOWEST SETTING. CALL LIGHT WITHIN REACH. WILL CONTINUE TO MONTIOR.
[2018-08-08 06:11] VITALS: BP 100/62
--- NOTE | 2018-08-08 06:50 | NUR ---
PT RESTING IN BED. DENIES ANY DISTRESS. STILL FIDGETY IN BED. NO ACUTE EVENT OCURED AT NIGHT. BED IS AT LOWEST SETTING. CALL LIGHT WITHIN REACH. WILL CONTINUE TO MONITOR.
[2018-08-08] MEDS ORDERED: LEVOFLOXACIN500 M1 PO (07:18)
[2018-08-08] MEDS ORDERED: [UNRECOGNIZED DRUG - OTHER] IV (07:39)
--- NOTE | 2018-08-08 07:50 | NUR ---
AWAKE,ALERT AND ABLE TO VERBALIZED NEEDS. NO ACUTE RESP. DISTRESS NOTED. RA W/ 02 SAT 93%. AMBULATORY. R.T PROTOCOL ,CALL LIGHT W/ IN REACH. VOIDING WELL IN URINAL ,DENIES ANY PAIN AT THI STIME. WILL D/C TO SNF AT 1100 AM AWAITING FOR RIDE.PT. MADE AWARE.
[2018-08-08 09:41] VITALS: BP 110/74
--- NOTE | 2018-08-08 11:40 | NUR ---
PT. DISCHARGE TO [facility] ,IN STABLE CONDITION. RE- INSERTED NEW IV ACCESS BEFORE DISCHARGE FOR CONT. IV ANTIBIOTIC W/ GOOD BLOOD RETURN. NO ACUTE DISTRESS NOTED. REPORT GIVEN TO GEMMA DE LEON SUP. PT. TRANSPORTED BY [facility] PER W/C.ALL PAPER WORKS DISCHARGE GIVEN TO TRANSPORTATION TO BE GIVEN TO RN IN [facility].
== END 2018-08-08 11:37 | DRG 193 ==
LOC: ED 21:53 → DU 08-03 00:47 → MU 08-03 00:47 → DU 08-03 01:47 → MU 08-07 09:57
PROVIDERS: Emergency Medicine; Family Medicine; ADMIT Internal Medicine
DX: J18.9 Pneumonia, unspecified organism (principal); J96.21 Acute and chronic respiratory failure with hypoxia; N17.0 Acute kidney failure with tubular necrosis; J44.1 Chronic obstructive pulmonary disease with (acute) exacerbation; E44.1 Mild protein-calorie malnutrition; J84.10 Pulmonary fibrosis, unspecified; K21.9 Gastro-esophageal reflux disease without esophagitis; I10 Essential (primary) hypertension; E78.5 Hyperlipidemia, unspecified; F17.200 Nicotine dependence, unspecified, uncomplicated; F79 Unspecified intellectual disabilities; Z68.24 Body mass index [BMI] 24.0-24.9, adult
CPT/HCPCS: 83880; 84439; J0456; J0696; J1956; J2060; J2920; J2930; J7030; J7050; J7613; J7620; J7626; J7633; Q0092; Q9967